=== PATIENT | female | born 1970 | race Caucasian/White ===

== ENCOUNTER → 2016-12-17 | Outpatient (CLI) | payer OTHER | LOC: FIMAGING 13:14 | PROVIDERS: ATTEND Internal Medicine | DX: D25.2 Subserosal leiomyoma of uterus (principal) ==

== ENCOUNTER 2018-09-27 22:39 | Emergency (ER) | payer OTHER ==
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
[2018-09-27] MEDS ORDERED: IBUPROFEN 800 MG TAB PO ONE (22:58)
[2018-09-27] MEDS ORDERED: ACETAMINOPHEN 500 MG TAB PO ONE (22:58)
[2018-09-28 00:59] VITALS: BP 121/70
== END 2018-09-28 00:58 | disposition home or self-care (01) ==
DX: S70.02XA Contusion of left hip, initial encounter (principal); S00.93XA Contusion of unspecified part of head, initial encounter; M54.2 Cervicalgia; V03.00XA Pedestrian on foot injured in collision with car, pick-up truck or van in nontraffic accident, initial encounter; Y92.481 Parking lot as the place of occurrence of the external cause; Y93.89 Activity, other specified; Y99.9 Unspecified external cause status